=== PATIENT | female | born 1960 | race Caucasian/White ===

== ENCOUNTER → 2016-12-21 | Outpatient (CLI) | payer OTHER ==
--- NOTE | 2016-12-21 10:57 | REP ---
Clinical: Pain. Technique: AP, lateral, bilateral oblique, and sunrise views of the left knee. Findings: Age related tricompartmental degenerative changes are appreciated including subtle spurring along the femoral condyles, proximal tibia, tibial spine and patella. Fraying along the anterior margin of the patella with underlying sclerosis is also noted on lateral and sunrise views suggesting possible tendinopathy. No acute fracture dislocation. No definite effusion. Impression: Age-related arthritic degenerative changes as described above. Signed by Bello Reinoso MD 12/21/2016 10:48 A
== END ==
LOC: M RAD 10:13
PROVIDERS: ATTEND Family Medicine
DX: M17.12 Unilateral primary osteoarthritis, left knee (principal); M25.562 Pain in left knee

== ENCOUNTER 2017-01-08 16:28 | Emergency (ER) | payer OTHER ==
[~2017-01-08] VITALS: Ht 162.6 cm; Wt 74.8 kg
[2017-01-08 16:30] VITALS: BP 142/65
[2017-01-08] MEDS ORDERED: LISI10TA4 PO (16:52)
[2017-01-08] MEDS ORDERED: HYDR12.55 PO (16:52)
[2017-01-08] MEDS ORDERED: ESTR1TAB3 PO (16:55)
[2017-01-08] MEDS ORDERED: OMEP20CA3 PO (16:55)
[2017-01-08] MEDS ORDERED: VITA500046 PO (17:01)
[2017-01-08] MEDS ORDERED: BUPR75TA5 PO (17:01)
[2017-01-08] MEDS ORDERED: AMIT10TA PO (17:03)
[2017-01-08] MEDS ORDERED: NORCO, ANEXSIA 5/325MG TABLET (HYDROcodone/ACETAMINOPHEN) PO ONE ×2 (17:45→18:45)
[2017-01-08] MEDS ORDERED: NORCOTAB PO (18:29)
--- NOTE | 2017-01-09 08:19 | REP ---
LEFT KNEE SERIES: Five views of the left knee performed. There is no acute fracture or dislocation. There is mild spurring of the lateral patellar facet as well as at the margins of the femoral condyles and tibial plateaus. There is mild spurring of the tibial spines. There is slight diffuse joint space narrowing. There is a moderate joint effusion. IMPRESSION: Mild diffuse degenerative changes. No fracture or dislocation. Moderate joint effusion. Signed by Davidson Hinojosa MD 01/09/2017 04:12 P
[2017-01-09] MEDS ORDERED: NORCOTAB PO ×2 (11:03→12:09)
== END 2017-01-08 18:57 | disposition home or self-care (01) ==
LOC: M ED 18:36
DX: M25.462 Effusion, left knee (principal); I10 Essential (primary) hypertension; K21.9 Gastro-esophageal reflux disease without esophagitis; Z79.899 Other long term (current) drug therapy; Z88.6 Allergy status to analgesic agent; Z88.8 Allergy status to other drugs, medicaments and biological substances

== ENCOUNTER 2017-02-01 17:27 | Emergency (ER) | payer OTHER ==
[~2017-02-01] VITALS: Ht 162.6 cm; Wt 72.6 kg
[~2017-02-01 17:27] MED LIST: AMIT10TA PO; BUPR75TA5 PO; ESTR1TAB3 PO; HYDR12.55 PO; LISI10TA4 PO; NORCOTAB PO; OMEP20CA3 PO; VITA500046 PO
[2017-02-01 18:08] VITALS: BP 146/68
== END 2017-02-01 19:42 | disposition left against medical advice (07) ==
LOC: M ED 18:47
DX: Z53.29 Procedure and treatment not carried out because of patient's decision for other reasons (principal)

== ENCOUNTER 2017-02-02 16:47 | Emergency (ER) | payer OTHER ==
[~2017-02-02] VITALS: Ht 162.6 cm; Wt 72.6 kg
[2017-02-02 18:52] VITALS: BP 138/83
== END 2017-02-02 18:59 | disposition home or self-care (01) ==
LOC: M ED 18:51
DX: H53.9 Unspecified visual disturbance (principal); I10 Essential (primary) hypertension; J45.909 Unspecified asthma, uncomplicated; Z88.6 Allergy status to analgesic agent; Z88.8 Allergy status to other drugs, medicaments and biological substances; Z91.09 Other allergy status, other than to drugs and biological substances; Z79.899 Other long term (current) drug therapy

== ENCOUNTER → 2017-02-03 | Outpatient (RCR) | payer OTHER | LOC: M PT 01-20 10:29 | PROVIDERS: ATTEND Orthopaedic Surgery | DX: Z51.89 Encounter for other specified aftercare (principal); M17.12 Unilateral primary osteoarthritis, left knee ==

== ENCOUNTER 2017-02-14 10:09 | Outpatient (RCR) | payer OTHER | END 2017-03-05 | LOC: M PT 10:09 | PROVIDERS: ATTEND Orthopaedic Surgery | DX: Z51.89 Encounter for other specified aftercare (principal); M17.12 Unilateral primary osteoarthritis, left knee ==

== ENCOUNTER → 2017-03-16 | Outpatient (CLI) | payer OTHER ==
[2017-03-16 14:17] LABS: ANION GAP 6 MEQ/L (8-16); BLOOD UREA NITROGEN 15 MG/DL (7-18); CALCIUM LEVEL 8.6 MG/DL (8.5-10.1); CARBON DIOXIDE LEVEL 31 MEQ/L (21-32); CHLORIDE LEVEL 103 MEQ/L (98-107); CREATININE FOR GFR 0.82 MG/DL (0.55-1.02); GLOMERULAR FILTRATION RATE > 60.0 (>51); GLUCOSE, FASTING 134 MG/DL (70-105); POTASSIUM SERUM 3.7 MEQ/L (3.5-5.1); SODIUM LEVEL 140 MEQ/L (136-145)
--- NOTE | 2017-03-16 20:04 | ECGEPIP ---
Stationary ECG Study [facility] Test Date: 2017-03-16 Pat Name: PAULINA POWERS Department: Room: - Gender: F [employer]ist: : [id number] Requested By: Kirby Cordova Order Number: [id number] Reading MD: Mando Ling Measurements Intervals Hughes Rate: 77 P: 61 SD: 183 QRS: 25 QRSD: 87 T: 58 QT: 366 QTc: 416 Interpretive Statements SINUS RHYTHM SINCE 08/17/15 HR IS SLOWER AND RIGHT BUNDLE BRANCH BLOCK IS NO LONGER PRESENT Electronically Signed On 03-16-2017 20:04:05 EDT by Mando Ling
== END ==
LOC: M LAB 11:47
PROVIDERS: ATTEND Orthopaedic Surgery
DX: Z79.899 Other long term (current) drug therapy (principal); I10 Essential (primary) hypertension

== ENCOUNTER 2017-04-04 09:50 | Outpatient (RCR) | payer OTHER | END 2017-04-05 | LOC: M PT 09:50 | PROVIDERS: ATTEND Orthopaedic Surgery | DX: Z51.89 Encounter for other specified aftercare (principal); M23.302 Other meniscus derangements, unspecified lateral meniscus, unspecified knee ==

== ENCOUNTER → 2017-04-20 | Outpatient (CLI) | payer OTHER ==
[2017-04-20 11:06] LABS: ALBUMIN 3.5 GM/DL (3.2-5.2); ALKALINE PHOSPHATASE 95 U/L (45-117); ALT/SGPT 22 U/L (12-78); ANION GAP 5 MEQ/L (8-16); AST/SGOT 10 U/L (15-37); BILIRUBIN,TOTAL 0.3 MG/DL (0.2-1.0); BLOOD UREA NITROGEN 8 MG/DL (7-18); CALCIUM LEVEL 8.7 MG/DL (8.5-10.1); CARBON DIOXIDE LEVEL 31 MEQ/L (21-32); CHLORIDE LEVEL 100 MEQ/L (98-107); CREATININE FOR GFR 0.77 MG/DL (0.55-1.02); GLOMERULAR FILTRATION RATE > 60.0 (>51); GLUCOSE, FASTING 74 MG/DL (70-105); POTASSIUM SERUM 3.7 MEQ/L (3.5-5.1); SODIUM LEVEL 136 MEQ/L (136-145); TOTAL PROTEIN 7.4 GM/DL (6.4-8.2)
== END ==
LOC: M LAB 10:17
PROVIDERS: ATTEND Neuromusculoskeletal Medicine & OMM
DX: M79.7 Fibromyalgia (principal)

== ENCOUNTER 2017-05-03 08:54 | Outpatient (RCR) | payer OTHER | END 2017-05-05 | disposition home or self-care (01) | LOC: M PT 08:54 | PROVIDERS: ATTEND Orthopaedic Surgery | DX: Z51.89 Encounter for other specified aftercare (principal); Z47.89 Encounter for other orthopedic aftercare ==

== ENCOUNTER → 2017-07-27 | Outpatient (CLI) | payer OTHER ==
[~2017-07-27] MED LIST changes: +ROBA500T PO
--- NOTE | 2017-07-27 14:17 | REPMRS ---
Patient History The patient states she had a clinical breast exam in 07/2017. Patient is postmenopausal and has history of basal cell skin cancer at age 51. Family history of pancreatic cancer in father at age 62 and endometrial cancer in mother at age 50 or over. Taking estrogen for 12 years. Digital Woman Screen Mammo: July 27, 2017 - Exam #: [id number] Bilateral CC and MLO view(s) were taken. Technologist: Naina Vizcarra, Technologist Prior study comparison: July 26, 2016, digital woman screen mammo performed at [facility] [email or web address] [facility]. May 04, 2015, digital woman screen mammo performed at [facility]. FINDINGS: The breast tissue is heterogeneously dense. This may lower the sensitivity of mammography. There has been no change in the appearance of the mammogram from the prior studies. There is a moderate amount of residual fibroglandular tissue which is fairly symmetric. There is no interval development of dominant mass, areas of architectural distortion, or clustered microcalcification typical of malignancy. ASSESSMENT: BI-RADS/ACR category 1 mammogram. Negative. Recommendation Routine screening mammogram in 1 year (for women over age 40). This mammogram was interpreted with the aid of an FDA-approved computer-aided dectection system. Electronically Signed By: Davidson Hinojosa MD 07/27/17 [id number]
== END ==
LOC: M WHC 08:57
PROVIDERS: ATTEND Nurse Practitioner Women's Health
DX: Z12.31 Encounter for screening mammogram for malignant neoplasm of breast (principal); Z85.828 Personal history of other malignant neoplasm of skin; Z85.42 Personal history of malignant neoplasm of other parts of uterus; Z80.0 Family history of malignant neoplasm of digestive organs

== ENCOUNTER 2017-08-25 17:35 | Emergency (ER) | payer OTHER ==
[~2017-08-25] VITALS: Ht 162.6 cm; Wt 72.7 kg
[2017-08-25 17:35] VITALS: BP 153/88
[~2017-08-25 17:35] MED LIST changes: -ROBA500T PO
[2017-08-25] MEDS ORDERED: NORCOTAB PO (19:33)
[2017-08-25] MEDS ORDERED: ROBA500T PO (19:33)
[2017-08-25] MEDS ORDERED: NORCO 5/325MG TABLET (BULK FOR ED) PO ONE (19:45)
[2017-08-25] MEDS ORDERED: METHOCARBAMOL 500 MG TAB PO ONE (19:45)
== END 2017-08-25 19:41 | disposition home or self-care (01) ==
LOC: M ED 17:35
DX: S29.011A Strain of muscle and tendon of front wall of thorax, initial encounter (principal); S29.012A Strain of muscle and tendon of back wall of thorax, initial encounter; S16.1XXA Strain of muscle, fascia and tendon at neck level, initial encounter; X58.XXXA Exposure to other specified factors, initial encounter; Y92.89 Other specified places as the place of occurrence of the external cause; Y93.89 Activity, other specified; Y99.8 Other external cause status; M54.12 Radiculopathy, cervical region; I10 Essential (primary) hypertension; J45.909 Unspecified asthma, uncomplicated; K21.9 Gastro-esophageal reflux disease without esophagitis; Z79.899 Other long term (current) drug therapy; Z79.890 Hormone replacement therapy; Z88.8 Allergy status to other drugs, medicaments and biological substances; Z91.02 Food additives allergy status

== ENCOUNTER → 2017-11-12 | Outpatient (REF) | payer OTHER ==
[2017-11-12 22:09] LABS: APPEARANCE, URINE CLEAR (CLEAR); BACTERIA, URINE AUTO NEGATIVE (NEGATIVE); BILIRUBIN, URINE AUTO NEGATIVE (NEGATIVE); BLOOD, URINE BLOOD NEGATIVE (NEGATIVE); COLOR, URINE COLORLESS (YELLOW); GLUCOSE, URINE (UA) AUTO NEGATIVE (NEGATIVE); KETONE, URINE AUTO NEGATIVE (NEGATIVE); LEUKOCYTE ESTERASE, URINE AUTO NEGATIVE (NEGATIVE); NITRITE, URINE AUTO NEGATIVE (NEGATIVE); PROTEIN, URINE AUTO NEGATIVE (NEGATIVE); RBC, URINE AUTO 0 /HPF (0-3); SQUAMOUS EPITHELIAL CELL UR AU 0 /HPF (0-6); UROBILINOGEN, URINE AUTO 0.2 mg/dL (0.0-2.0); WBC, URINE AUTO 0 /HPF (0-3)
== END ==
LOC: M LAB REF 09:04
DX: N39.0 Urinary tract infection, site not specified (principal)

== ENCOUNTER → 2017-11-20 | Outpatient (CLI) | payer OTHER | LOC: M PAIN 08:45 | DX: G89.29 Other chronic pain (principal); M54.2 Cervicalgia; M47.22 Other spondylosis with radiculopathy, cervical region; M79.1 Myalgia; I10 Essential (primary) hypertension; E78.5 Hyperlipidemia, unspecified; J45.909 Unspecified asthma, uncomplicated; K21.9 Gastro-esophageal reflux disease without esophagitis; M19.90 Unspecified osteoarthritis, unspecified site; E55.9 Vitamin D deficiency, unspecified; G47.30 Sleep apnea, unspecified; Z79.899 Other long term (current) drug therapy; Z88.6 Allergy status to analgesic agent; Z88.8 Allergy status to other drugs, medicaments and biological substances; Z91.010 Allergy to peanuts; Z91.018 Allergy to other foods; Z91.040 Latex allergy status; Z96.651 Presence of right artificial knee joint | CPT/HCPCS: G0463 ==

== ENCOUNTER 2017-11-22 10:16 | Outpatient (RCR) | payer OTHER | END 2017-12-06 | LOC: M PT 10:16 | DX: Z51.89 Encounter for other specified aftercare (principal); M79.1 Myalgia; M54.2 Cervicalgia; M47.22 Other spondylosis with radiculopathy, cervical region | CPT/HCPCS: 97010 ==

== ENCOUNTER 2017-11-22 11:51 | Emergency (ER) | payer OTHER ==
[2017-11-22 12:53] LABS: KETONE, URINE AUTO RFX NEGATIVE (NEGATIVE); LEUKOCYTE ESTERASE UR AUTO RFX NEGATIVE (NEGATIVE); MUCUS, URINE RFX SMALL (NEGATIVE); NITRITE, URINE AUTO RFX NEGATIVE (NEGATIVE); RBC, URINE AUTO RFX 1 /HPF (0-3); SPECIFIC GRAVITY UR AUTO RFX 1.006 (1.002-1.035); SQUAM EPITHELIAL CELL UR AURFX 0 /HPF (0-6); WBC, URINE AUTO RFX 0 /HPF (0-3)
[2017-11-22] MEDS: NS 1,000 ML IV (13:17)
[2017-11-22 13:23] LABS: BASO % 0.2 % (0.0-1.0); EOS # 0.1 10^3/uL (0.0-0.50); HEMATOCRIT 36.9 % (36.0-47.0); HEMOGLOBIN 12.1 g/dl (12.0-16.0); IMMATURE GRANULOCYTE % 0.2 % (0-0); LYMPH % 32.7 % (24.0-44.0); MEAN CORPUSCULAR HEMOGLOBIN 28.3 pg (27.0-33.0); MEAN CORPUSCULAR HGB CONC 32.8 g/dl (32.0-36.5); MEAN CORPUSCULAR VOLUME 86.4 fl (80.0-96.0); MONO # 0.5 10^3/uL (0.0-0.8); MONO % 8.2 % (0.0-5.0); NEUTROPHILS # 3.6 10^3/uL (1.8-7.7); NEUTROPHILS % 57.7 % (36.0-66.0); PLATELET COUNT, AUTOMATED 240 10^3/uL (150-450); RED BLOOD COUNT 4.27 10^6/uL (4.00-5.40); RED CELL DISTRIBUTION WIDTH 13.7 % (11.5-14.5); WHITE BLOOD COUNT 6.2 10^3/uL (4.0-10.0)
[2017-11-22 13:57] LABS: ALBUMIN 3.9 GM/DL (3.2-5.2); ALBUMIN/GLOBULIN RATIO 0.91 (1.00-1.93); ALKALINE PHOSPHATASE 85 U/L (45-117); ALT/SGPT 25 U/L (12-78); ANION GAP 7 MEQ/L (8-16); AST/SGOT 17 U/L (7-37); BILIRUBIN,TOTAL 0.4 MG/DL (0.2-1.0); BLOOD UREA NITROGEN 11 MG/DL (7-18); CALCIUM LEVEL 9.2 MG/DL (8.5-10.1); CARBON DIOXIDE LEVEL 30 MEQ/L (21-32); CHLORIDE LEVEL 102 MEQ/L (98-107); CREATININE FOR GFR 0.78 MG/DL (0.55-1.02); GLOMERULAR FILTRATION RATE > 60.0 (>51); GLUCOSE, FASTING 97 MG/DL (70-105); LIPASE 378 U/L (73-393); POTASSIUM SERUM 3.8 MEQ/L (3.5-5.1); SODIUM LEVEL 139 MEQ/L (136-145); TOTAL PROTEIN 8.2 GM/DL (6.4-8.2)
[2017-11-22] MEDS ORDERED: ISOVUE-370 76% 100ML VIAL (Q9967) As Ordered (14:01)
== END 2017-11-22 16:26 | disposition home or self-care (01) ==
LOC: M ED 11:51
DX: K59.00 Constipation, unspecified (principal); R10.32 Left lower quadrant pain; J45.909 Unspecified asthma, uncomplicated; I10 Essential (primary) hypertension; K21.9 Gastro-esophageal reflux disease without esophagitis; Z79.890 Hormone replacement therapy; Z79.899 Other long term (current) drug therapy; Z88.8 Allergy status to other drugs, medicaments and biological substances; Z91.02 Food additives allergy status; Z98.890 Other specified postprocedural states
CPT/HCPCS: Q9967

== ENCOUNTER → 2017-12-05 | Outpatient (CLI) | payer OTHER ==
[~2017-12-05] MED LIST changes: -AMIT10TA PO; +BUPIVACAINE HCL 0.25% 10 ML VIAL As Ordered; +BUPIVACAINE HCL 0.25% 30 ML VIAL As Ordered; -BUPR75TA5 PO; -ESTR1TAB3 PO; -HYDR12.55 PO; -LISI10TA4 PO; -NORCOTAB PO; -OMEP20CA3 PO; +TRIAMCINOLONE ACETONIDE SUSP 40 MG/ML VIAL (J3301) As Ordered; -VITA500046 PO; +diazePAM 5 MG TAB As Ordered; +oxyCODONE 5MG TAB As Ordered
== END ==
LOC: M PAIN 15:15
DX: G89.29 Other chronic pain (principal); M79.1 Myalgia; I10 Essential (primary) hypertension; E78.5 Hyperlipidemia, unspecified; K21.9 Gastro-esophageal reflux disease without esophagitis; Z79.899 Other long term (current) drug therapy; Z88.8 Allergy status to other drugs, medicaments and biological substances; Z91.018 Allergy to other foods; Z91.040 Latex allergy status
CPT/HCPCS: J3301

== ENCOUNTER 2017-12-11 10:53 | Outpatient (RCR) | payer OTHER | END 2018-01-03 | LOC: M PT 12-14 10:45 | DX: Z51.89 Encounter for other specified aftercare (principal); M79.1 Myalgia; M54.2 Cervicalgia; M47.22 Other spondylosis with radiculopathy, cervical region | CPT/HCPCS: 97010 ==

== ENCOUNTER → 2017-12-26 | Outpatient (CLI) | payer OTHER | LOC: M PAIN 10:30 | DX: M79.1 Myalgia (principal); M54.2 Cervicalgia; I10 Essential (primary) hypertension; E78.5 Hyperlipidemia, unspecified; Z79.899 Other long term (current) drug therapy; Z88.8 Allergy status to other drugs, medicaments and biological substances; Z91.018 Allergy to other foods; Z91.010 Allergy to peanuts; Z91.040 Latex allergy status | CPT/HCPCS: G0463 ==

== ENCOUNTER → 2018-03-01 | Outpatient (CLI) | payer OTHER | LOC: M PAIN 09:00 | DX: G89.29 Other chronic pain (principal); M79.1 Myalgia; M54.2 Cervicalgia; M47.22 Other spondylosis with radiculopathy, cervical region; I10 Essential (primary) hypertension; E78.5 Hyperlipidemia, unspecified; J45.909 Unspecified asthma, uncomplicated; K21.9 Gastro-esophageal reflux disease without esophagitis; E55.9 Vitamin D deficiency, unspecified; M19.90 Unspecified osteoarthritis, unspecified site; G47.30 Sleep apnea, unspecified; Z85.828 Personal history of other malignant neoplasm of skin; Z96.651 Presence of right artificial knee joint; Z79.899 Other long term (current) drug therapy; Z88.6 Allergy status to analgesic agent; Z91.018 Allergy to other foods; Z91.040 Latex allergy status; Z88.8 Allergy status to other drugs, medicaments and biological substances | CPT/HCPCS: G0463 ==

== ENCOUNTER → 2018-03-05 | Outpatient (CLI) | payer OTHER ==
[2018-03-05 18:48] LABS: BASO % 0.3 % (0.0-1.0); EOS # 0.1 10^3/uL (0.0-0.50); EOS % 0.7 % (0.0-3.0); HEMATOCRIT 35.2 % (36.0-47.0); HEMOGLOBIN 11.8 g/dl (12.0-15.5); IMMATURE GRANULOCYTE % 0.2 % (0-3.0); LYMPH # 2.1 10^3/uL (1.5-4.5); LYMPH % 23.6 % (24.0-44.0); MEAN CORPUSCULAR HEMOGLOBIN 28.9 pg (27.0-33.0); MEAN CORPUSCULAR HGB CONC 33.5 g/dl (32.0-36.5); MEAN CORPUSCULAR VOLUME 86.3 fl (80.0-96.0); MONO # 0.8 10^3/uL (0.0-0.8); MONO % 8.6 % (0.0-5.0); NEUTROPHILS # 5.9 10^3/uL (1.8-7.7); NEUTROPHILS % 66.6 % (36.0-66.0); PLATELET COUNT, AUTOMATED 245 10^3/uL (150-450); RED BLOOD COUNT 4.08 10^6/uL (4.00-5.40); RED CELL DISTRIBUTION WIDTH 13.4 % (11.5-14.5); WHITE BLOOD COUNT 8.9 10^3/uL (4.0-10.0)
[2018-03-05 19:06] LABS: ERYTHROCYTE SEDIMENTATION RATE 71 mm/hr (0-30)
== END ==
LOC: M LAB 17:43
DX: M25.561 Pain in right knee (principal); Z98.890 Other specified postprocedural states; M17.11 Unilateral primary osteoarthritis, right knee
CPT/HCPCS: 73564

== ENCOUNTER → 2018-07-16 | Outpatient (CLI) | payer OTHER ==
[2018-07-16 20:10] LABS: BASO % 0.5 % (0.0-1.0); EOS # 0.1 10^3/uL (0.0-0.50); EOS % 1.3 % (0.0-3.0); HEMATOCRIT 34.8 % (36.0-47.0); HEMOGLOBIN 11.7 g/dl (12.0-15.5); IMMATURE GRANULOCYTE % 0.4 % (0-3.0); LYMPH # 2.8 10^3/uL (1.5-4.5); LYMPH % 33.5 % (24.0-44.0); MEAN CORPUSCULAR HEMOGLOBIN 29.5 pg (27.0-33.0); MEAN CORPUSCULAR HGB CONC 33.6 g/dl (32.0-36.5); MEAN CORPUSCULAR VOLUME 87.7 fl (80.0-96.0); MONO # 0.7 10^3/uL (0.0-0.8); NEUTROPHILS # 4.6 10^3/uL (1.8-7.7); NEUTROPHILS % 56.3 % (36.0-66.0); PLATELET COUNT, AUTOMATED 258 10^3/uL (150-450); RED BLOOD COUNT 3.97 10^6/uL (4.00-5.40); RED CELL DISTRIBUTION WIDTH 13.5 % (11.5-14.5); WHITE BLOOD COUNT 8.2 10^3/uL (4.0-10.0)
[2018-07-16 20:43] LABS: ERYTHROCYTE SEDIMENTATION RATE 59 mm/hr (0-30)
[2018-07-16 21:25] LABS: ALBUMIN 3.5 GM/DL (3.2-5.2); ALKALINE PHOSPHATASE 85 U/L (45-117); ALT/SGPT 28 U/L (12-78); ANION GAP 6 MEQ/L (8-16); AST/SGOT 20 U/L (7-37); BILIRUBIN,TOTAL 0.4 MG/DL (0.2-1.0); BLOOD UREA NITROGEN 13 MG/DL (7-18); C REACTIVE PROTEIN QUANTITATIV 0.76 MG/DL (0.00-0.30); CALCIUM LEVEL 8.6 MG/DL (8.5-10.1); CARBON DIOXIDE LEVEL 32 MEQ/L (21-32); CHLORIDE LEVEL 103 MEQ/L (98-107); CREATININE FOR GFR 0.78 MG/DL (0.55-1.30); GLOMERULAR FILTRATION RATE > 60.0 (>51); GLUCOSE, FASTING 106 MG/DL (70-100); POTASSIUM SERUM 3.6 MEQ/L (3.5-5.1); SODIUM LEVEL 141 MEQ/L (136-145); TOTAL PROTEIN 7.7 GM/DL (6.4-8.2)
[2018-07-16 21:38] LABS: ALBUMIN/GLOBULIN RATIO 0.83 (1.00-1.93)
== END ==
LOC: M LAB 19:44
DX: R10.9 Unspecified abdominal pain (principal); R35.0 Frequency of micturition
CPT/HCPCS: 80053

== ENCOUNTER → 2018-07-19 | Outpatient (CLI) | payer OTHER ==
[~2018-07-19] MED LIST changes: -BUPIVACAINE HCL 0.25% 10 ML VIAL As Ordered; -BUPIVACAINE HCL 0.25% 30 ML VIAL As Ordered; +GASTROGRAFIN SOLUTION 30ML (Q9963) As Ordered; +ISOVUE-370 76% 100ML VIAL (Q9967) As Ordered; -TRIAMCINOLONE ACETONIDE SUSP 40 MG/ML VIAL (J3301) As Ordered; -diazePAM 5 MG TAB As Ordered; -oxyCODONE 5MG TAB As Ordered
== END ==
LOC: M RAD 12:57
DX: R10.9 Unspecified abdominal pain (principal)
CPT/HCPCS: Q9963

== ENCOUNTER → 2018-10-08 | Outpatient (REF) | payer OTHER | LOC: M SFHCPLAZ 19:38 | DX: C44.509 Unspecified malignant neoplasm of skin of other part of trunk (principal) | CPT/HCPCS: 88305 ==

== ENCOUNTER → 2018-10-15 | Outpatient (CLI) | payer OTHER | LOC: M WHC 09:02 | DX: Z12.31 Encounter for screening mammogram for malignant neoplasm of breast (principal); Z80.49 Family history of malignant neoplasm of other genital organs; Z80.0 Family history of malignant neoplasm of digestive organs; N60.31 Fibrosclerosis of right breast; N60.32 Fibrosclerosis of left breast | CPT/HCPCS: 77067 ==

== ENCOUNTER → 2018-11-12 | Outpatient (CLI) | payer OTHER ==
[~2018-11-12] MED LIST changes: +AMIT10TA PO; +BUPR75TA5 PO; +CIPR-249 PO; +CITRSOL8 PO; +ESTR0.5T3 PO; +ESTR1TAB3 PO; +FLAG500T PO; -GASTROGRAFIN SOLUTION 30ML (Q9963) As Ordered; +HYDR12.55 PO; -ISOVUE-370 76% 100ML VIAL (Q9967) As Ordered; +LISI10TA4 PO; +NORCOTAB PO; +OMEP20CA3 PO; +ROBA500T PO; +VITA500046 PO
[2018-11-12 13:45] LABS: C REACTIVE PROTEIN QUANTITATIV 0.37 MG/DL (0.00-0.30)
[2018-11-16 00:06] LABS: ANCA-ATYPICAL <1:20 titer (Neg:<1:20); ANTI-SACCHAROMYCES CEREV. IgA <20.0 Units (0.0-24.9); ANTI-SACCHAROMYCES CEREV. IgG 34.8 Units (0.0-24.9); CYTOPLASMIC NEUTROP AB ANCA-C <1:20 titer (Neg:<1:20); ENDOMYSIAL ABY IgA Negative (Negative); PERINUCLEAR AB ANCA-P <1:20 titer (Neg:<1:20); TISSUE TRANSGLUTAMINASE IgA <2 U/mL (0-3)
== END ==
LOC: M LAB 12:23
PROVIDERS: ATTEND Internal Medicine Gastroenterology
DX: K52.9 Noninfective gastroenteritis and colitis, unspecified (principal)

== ENCOUNTER → 2018-11-27 | Outpatient (CLI) | payer OTHER ==
--- NOTE | 2018-11-28 05:57 | REP ---
Clinical: Right-sided abdominal pain. Technique: Upright view of the chest with supine and upright views of the abdomen and pelvis. Findings: Frontal upright view of the chest demonstrates no acute cardiopulmonary process or free air below the diaphragm to suspect pneumoperitoneum. Supine and upright views of the abdomen and pelvis demonstrate nonspecific bowel gas pattern without obstruction or perforation. The patient appears to be status post cholecystectomy. No organomegaly. No abnormal calcifications. Skeletal structures normal for age. Impression: Nonspecific bowel gas pattern. Electronically Signed by Bello Reinoso MD 11/28/2018 05:49 A
== END ==
LOC: M RAD 15:14 → M LAB 15:14
PROVIDERS: ATTEND Family Medicine
DX: R10.9 Unspecified abdominal pain (principal)

== ENCOUNTER → 2019-05-06 | Outpatient (REF) | payer OTHER ==
[~2019-05-06] MED LIST changes: +HYDR-3715 PO; -NORCOTAB PO; -OMEP20CA3 PO; +OMEP20CA4 PO
== END ==
LOC: M LAB REF 11:06
PROVIDERS: ATTEND Internal Medicine Gastroenterology
DX: R10.84 Generalized abdominal pain (principal); R11.0 Nausea; R14.3 Flatulence; K21.9 Gastro-esophageal reflux disease without esophagitis

== ENCOUNTER → 2019-05-13 | Outpatient (CLI) | payer OTHER ==
[2019-05-13 15:20] LABS: BASO # 0.1 10^3/uL (0.0-0.2); BASO % 0.7 % (0.0-1.0); EOS # 0.5 10^3/uL (0.0-0.50); EOS % 7.6 % (0.0-3.0); HEMATOCRIT 35.5 % (36.0-47.0); HEMOGLOBIN 11.8 g/dl (12.0-15.5); LYMPH # 2.1 10^3/uL (1.5-4.5); LYMPH % 31.3 % (24.0-44.0); MEAN CORPUSCULAR HEMOGLOBIN 29.6 pg (27.0-33.0); MEAN CORPUSCULAR HGB CONC 33.2 g/dl (32.0-36.5); MONO # 0.6 10^3/uL (0.0-0.8); MONO % 8.8 % (0.0-5.0); NEUTROPHILS # 3.5 10^3/uL (1.8-7.7); NEUTROPHILS % 51.3 % (36.0-66.0); PLATELET COUNT, AUTOMATED 236 10^3/uL (150-450); RED BLOOD COUNT 3.99 10^6/uL (4.00-5.40); WHITE BLOOD COUNT 6.8 10^3/uL (4.0-10.0)
[2019-05-13 15:38] LABS: HEMOGLOBIN A1c 6.2 %
[2019-05-13 15:53] LABS: ALBUMIN 3.7 GM/DL (3.2-5.2); ALT/SGPT 43 U/L (12-78); BILIRUBIN,TOTAL 0.7 MG/DL (0.2-1.0); BLOOD UREA NITROGEN 10 MG/DL (7-18); CARBON DIOXIDE LEVEL 29 MEQ/L (21-32); CHLORIDE LEVEL 101 MEQ/L (98-107); CHOLESTEROL LEVEL 227 MG/DL (<200); CHOLESTEROL RISK RATIO 3.913 (<5); CREATININE FOR GFR 0.88 MG/DL (0.55-1.30); GLOMERULAR FILTRATION RATE > 60.0 (>45); GLUCOSE, FASTING 77 MG/DL (70-100); HDL CHOLESTEROL 58 MG/DL (>40); LDL CHOLESTEROL 148 MG/DL (<100); NON-HDL-C 169 MG/DL; POTASSIUM SERUM 3.9 MEQ/L (3.5-5.1); SODIUM LEVEL 137 MEQ/L (136-145); TOTAL PROTEIN 7.4 GM/DL (6.4-8.2); TRIGLYCERIDES LEVEL 105 MG/DL (<150)
[2019-05-13 15:55] LABS: TOTAL 25(OH) VITAMIN D 77.9 NG/ML (30.0-100.0)
== END ==
LOC: M LAB 14:31
PROVIDERS: ATTEND Family Medicine
DX: R53.83 Other fatigue (principal); Z13.1 Encounter for screening for diabetes mellitus; Z13.220 Encounter for screening for lipoid disorders

== ENCOUNTER → 2019-05-14 | Outpatient (CLI) | payer OTHER ==
[~2019-05-14] MED LIST changes: +GLUCAGON FOR INJ 1 MG VIAL (J1610) As Ordered ONE; +ISOVUE-370 76% 100ML VIAL (Q9967) As Ordered ONE; +VoLumen 0.1% SUSPENSION 450ML BOTTLE As Ordered ONE
--- NOTE | 2019-05-14 23:38 | REP ---
Clinical: Generalized abdominal pain. Technique: Contrast enhanced CT of the abdomen using enterography technique. Low density oral contrast material and 100 ml Isovue 370 intravenous contrast material used as per protocol. Coronal and sagittal re-formations obtained. Comparison: 07/19/2018. Findings: Lung bases are essentially clear. Visualized heart and pericardium normal. Hepatic steatosis noted without focal hepatic lesion. Spleen, pancreas, bilateral adrenal glands and kidneys are normal. Evidence for prior cholecystectomy. Evaluation of the enteric system is without acute inflammatory process. No areas of stenosis/stricture or focal abnormalities are identified. No perienteric inflammatory change, hyperemia, or fluid noted. No bowel obstruction. No significant diverticulosis. Pelvis demonstrates normal bladder and evidence for prior hysterectomy. No ascites. No free air. No adenopathy. Abdominal aorta and vasculature normal. Musculoskeletal structures intact without focal osseous abnormality. Impression: Mild hepatic steatosis. Normal appearance to the enteric system. Evidence of prior hysterectomy and cholecystectomy. No acute abdominopelvic pathology appreciated. Electronically Signed by Bello Reinoso MD 05/14/2019 11:29 P
== END ==
LOC: M RAD 12:44
PROVIDERS: ATTEND Internal Medicine Gastroenterology
DX: R10.84 Generalized abdominal pain (principal); R14.3 Flatulence; K21.9 Gastro-esophageal reflux disease without esophagitis; R19.4 Change in bowel habit; R79.9 Abnormal finding of blood chemistry, unspecified; Z91.013 Allergy to seafood; K76.0 Fatty (change of) liver, not elsewhere classified; Z90.49 Acquired absence of other specified parts of digestive tract; Z90.710 Acquired absence of both cervix and uterus
CPT/HCPCS: 74177; J1610; Q9967

== ENCOUNTER → 2019-08-26 | Outpatient (REF) | payer OTHER ==
[~2019-08-26] MED LIST changes: -GLUCAGON FOR INJ 1 MG VIAL (J1610) As Ordered ONE; -ISOVUE-370 76% 100ML VIAL (Q9967) As Ordered ONE; -VoLumen 0.1% SUSPENSION 450ML BOTTLE As Ordered ONE
== END ==
LOC: M SFHCPLAZ 10:10
PROVIDERS: ATTEND Dermatology
DX: C44.722 Squamous cell carcinoma of skin of right lower limb, including hip (principal)

== ENCOUNTER → 2019-12-13 | Outpatient (CLI) | payer OTHER ==
[~2019-12-13] MED LIST changes: +OMEP1CAP73 PO; -OMEP20CA4 PO
--- NOTE | 2019-12-13 15:09 | REP ---
Left foot series: Four views. History: Pain and cyst dorsal aspect of the foot. A ganglion cyst. Findings: Four views of the left foot demonstrate overall mineralization pattern is normal. There is osteoarthritis at the first MTP joint with fragmented spurring. Accessory ossicles are seen at the navicula. Plantar and Achilles calcaneal spurring is noted. Bones, joints, and soft tissues are otherwise unremarkable. 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 No acute bony abnormality. Electronically Signed by Fritz Sandoval MD 12/13/2019 03:54 P
--- NOTE | 2019-12-13 15:10 | REP ---
Left ankle series: Four views. History: Pain, ganglion cyst. Findings: Four views of the left ankle demonstrate mild soft tissue swelling in the distal calf soft tissues diffusely. There is plantar and Achilles calcaneal spurring. Mild distal fibular spurring is seen. Ankle mortise is intact. No acute bony abnormality. Impression: Heel spurs. Soft tissue swelling. No acute bony abnormality. Electronically Signed by Fritz Sandoval MD 12/13/2019 03:54 P
--- NOTE | 2019-12-13 15:35 | REP ---
Soft-tissue ultrasound left foot. History: Lump in the dorsal aspect soft tissues of the left foot with pain x2 weeks. Findings: Soft tissue sonography in the area of question demonstrates two small cystic areas adjacent to one another measuring 0.6 by 0.2 x 0.4 cm and 0.8 x 0.3 x 0.6 cm. These are compatible with ganglion cyst or cysts associated with extensor tendon sheath. No tendon sheath effusion is seen however. Impression: Two small cysts adjacent to one another in the dorsal soft tissues of the left foot as above. Electronically Signed by Fritz Sandoval MD 12/13/2019 03:54 P
== END ==
LOC: M LRY 14:17
PROVIDERS: ATTEND Family Medicine
DX: M79.672 Pain in left foot (principal); M67.479 Ganglion, unspecified ankle and foot

== ENCOUNTER → 2020-01-07 | Outpatient (CLI) | payer OTHER | LOC: M LAB 09:18 | PROVIDERS: ATTEND Nurse Practitioner Family | DX: R10.31 Right lower quadrant pain (principal) ==

== ENCOUNTER → 2020-01-08 | Outpatient (REF) | payer OTHER | LOC: M LAB REF 12:22 | PROVIDERS: ATTEND Nurse Practitioner Family | DX: R10.31 Right lower quadrant pain (principal) ==

== ENCOUNTER → 2020-05-26 | Outpatient (CLI) | payer SELFPAY | LOC: M LABSMTC 14:22 | PROVIDERS: ATTEND Pediatrics | DX: Z20.828 Contact with and (suspected) exposure to other viral communicable diseases (principal); Z11.59 Encounter for screening for other viral diseases ==

== ENCOUNTER → 2020-06-23 | Outpatient (REF) | payer OTHER, SELFPAY | LOC: M LAB REF 19:24 | PROVIDERS: ATTEND Dermatology | DX: D04.60 Carcinoma in situ of skin of unspecified upper limb, including shoulder (principal); C44.519 Basal cell carcinoma of skin of other part of trunk ==

== ENCOUNTER → 2020-08-18 | Outpatient (CLI) | payer OTHER ==
--- NOTE | 2020-08-18 14:23 | REPMRS ---
Patient History The patient states she has not had a clinical breast exam in over a year. Family history of endometrial cancer at age 50 or over in mother, pancreatic cancer at age 62 in father. Taking estrogen for 13 years. Digital Woman Screen Mammo: August 18, 2020 - Exam #: [id number] Bilateral CC and MLO view(s) were taken. Technologist: Julia Mata, Technologist Prior study comparison: October 15, 2018, bilateral digital woman screen mammo performed at [facility]. July 27, 2017, digital woman screen mammo performed at [facility]. July 26, 2016, digital woman screen mammo performed at [facility]. FINDINGS: There are scattered fibroglandular densities. The Volpara volumetric breast density category is:B. There has been no change in the appearance of the mammogram from the prior studies. There is a mild amount of scattered fibroglandular density which is fairly symmetric. There is no interval development of dominant mass, architectural distortion, or grouped microcalcification suggestive of malignancy. 3-D tomosynthesis shows no additional findings. Assessment: BI-RADS/ACR category 1 mammogram. Negative Mammogram. Recommendation Routine screening mammogram of both breasts in 1 year (for women over age 40). This patient's Lifetime Breast Cancer Risk is estimated at 5.2 %. This mammogram was interpreted with the aid of an FDA-approved computer-aided dectection system. Electronically Signed By: Nito Sandoval MD 08/18/20 [id number]
== END ==
LOC: M WHC 07:12
PROVIDERS: ATTEND Family Medicine
DX: Z12.31 Encounter for screening mammogram for malignant neoplasm of breast (principal); Z80.49 Family history of malignant neoplasm of other genital organs; Z80.0 Family history of malignant neoplasm of digestive organs; Z79.899 Other long term (current) drug therapy

== ENCOUNTER → 2020-09-22 | Outpatient (REF) | payer OTHER | LOC: M LAB REF 13:45 | PROVIDERS: ATTEND Dermatology | DX: L90.5 Scar conditions and fibrosis of skin (principal) ==

== ENCOUNTER → 2021-01-25 | Outpatient (REF) | payer OTHER ==
[~2021-01-25] MED LIST changes: -AMIT10TA PO; +AMIT10TA7 PO; +LISI10TA22 PO; -LISI10TA4 PO
== END ==
LOC: M LAB REF 15:35
PROVIDERS: ATTEND Dermatology
DX: L57.0 Actinic keratosis (principal); D23.5 Other benign neoplasm of skin of trunk; D23.62 Other benign neoplasm of skin of left upper limb, including shoulder

== ENCOUNTER → 2021-03-23 | Outpatient (CLI) | payer OTHER ==
[2021-03-23 10:44] LABS: BLOOD UREA NITROGEN 14 MG/DL (7-18); CALCIUM LEVEL 8.8 MG/DL (8.8-10.2); CARBON DIOXIDE LEVEL 29 MEQ/L (21-32); CHLORIDE LEVEL 102 MEQ/L (98-107); CHOLESTEROL LEVEL 238 MG/DL (<200); CHOLESTEROL RISK RATIO 3.777 (<5); CREATININE FOR GFR 0.73 MG/DL (0.55-1.30); GLOMERULAR FILTRATION RATE > 60.0 (>45); GLUCOSE, FASTING 95 MG/DL (70-100); HDL CHOLESTEROL 63 MG/DL (>40); LDL CHOLESTEROL 160 MG/DL (<100); NON-HDL-C 175 MG/DL; POTASSIUM SERUM 4.4 MEQ/L (3.5-5.1); SODIUM LEVEL 138 MEQ/L (136-145); TRIGLYCERIDES LEVEL 77 MG/DL (<150)
== END ==
LOC: M LAB 08:33
PROVIDERS: ATTEND Family Medicine
DX: R79.89 Other specified abnormal findings of blood chemistry (principal)

== ENCOUNTER → 2021-07-26 | Outpatient (REF) | payer OTHER | LOC: M LAB REF 14:04 | PROVIDERS: ATTEND Physician Assistant | DX: C44.229 Squamous cell carcinoma of skin of left ear and external auricular canal (principal) ==

== ENCOUNTER → 2021-09-28 | Outpatient (CLI) | payer OTHER ==
--- NOTE | 2021-09-28 10:07 | REPMRS ---
Patient History The patient states she had a clinical breast exam in September 2021. Patient is postmenopausal and has history of other cancer at age 51. Family history of endometrial cancer at age 50 or over in mother, pancreatic cancer at age 62 in father. Taking estrogen for 14 years. Tomosynthesis is performed. Volpara breast density is b. [facility] lifetime risk of breast cancer 5.0%. Covid vaccines 01/14/21 left arm. 02/09/2021 left arm. booster 09/15/21 left arm. Patient states no breast complaints today. Patient has signed MRS History Sheet. Digital Woman Screen Mammo: September 28, 2021 - Exam #: [id number] Bilateral CC and MLO view(s) were taken. Technologist: RT Rekha Prior study comparison: August 18, 2020, bilateral digital woman screen mammo performed at [facility]. October 15, 2018, bilateral digital woman screen mammo performed at [facility]. FINDINGS: The breast tissue is heterogeneously dense. This may lower the sensitivity of mammography. There has been no change in the appearance of the mammogram from the prior studies. There is a moderate amount of residual fibroglandular tissue which is fairly symmetric. There is no interval development of dominant mass, areas of architectural distortion, or clustered microcalcification typical of malignancy. Assessment: BI-RADS/ACR category 1 mammogram. Negative Mammogram. Recommendation Routine screening mammogram in 1 year (for women over age 40). This mammogram was interpreted with the aid of an FDA-approved computer-aided dectection system. Electronically Signed By: Davidson Hinojosa MD 09/28/21 1007
== END ==
LOC: M WHC 08:49
PROVIDERS: ATTEND Nurse Practitioner Women's Health
DX: Z12.31 Encounter for screening mammogram for malignant neoplasm of breast (principal); Z78.0 Asymptomatic menopausal state; Z80.49 Family history of malignant neoplasm of other genital organs; Z85.89 Personal history of malignant neoplasm of other organs and systems

== ENCOUNTER → 2021-12-07 | Outpatient (REF) | payer OTHER | LOC: M LAB REF 14:04 | PROVIDERS: ATTEND Dermatology | DX: T81.49XA Infection following a procedure, other surgical site, initial encounter (principal) ==

== ENCOUNTER → 2022-09-06 | Outpatient (CLI) | payer OTHER ==
[2022-09-06 11:34] LABS: BLOOD UREA NITROGEN 13 MG/DL (7-18); CREATININE FOR GFR 0.85 MG/DL (0.55-1.30); GLUCOSE, FASTING 106 MG/DL (70-100)
[2022-09-06 11:35] LABS: CALCIUM LEVEL 9.3 MG/DL (8.8-10.2); CARBON DIOXIDE LEVEL 29 MEQ/L (21-32); CHLORIDE LEVEL 104 MEQ/L (98-107); CHOLESTEROL LEVEL 225 MG/DL (<200); CHOLESTEROL RISK RATIO 4.166 (<5); GLOMERULAR FILTRATION RATE > 60.0 (>45); HDL CHOLESTEROL 54 MG/DL (>40); LDL CHOLESTEROL 145 MG/DL (<100); NON-HDL-C 171 MG/DL; POTASSIUM SERUM 4.3 MEQ/L (3.5-5.1); SODIUM LEVEL 138 MEQ/L (136-145); TRIGLYCERIDES LEVEL 129 MG/DL (<150)
== END ==
LOC: M LAB 10:09
PROVIDERS: ATTEND Family Medicine
DX: E78.2 Mixed hyperlipidemia (principal)

== ENCOUNTER → 2023-01-24 | Outpatient (CLI) | payer OTHER | LOC: M RAD 09:18 | PROVIDERS: ATTEND Family Medicine | DX: M25.512 Pain in left shoulder (principal) ==

== ENCOUNTER → 2023-02-21 | Outpatient (CLI) | payer OTHER | LOC: M WHC 07:33 | PROVIDERS: ATTEND Nurse Practitioner Family | DX: Z12.31 Encounter for screening mammogram for malignant neoplasm of breast (principal) ==

== ENCOUNTER 2023-03-10 09:17 | Emergency (ER) | payer OTHER ==
[~2023-03-10] VITALS: Ht 162.6 cm; Wt 73.4 kg
[2023-03-10] MEDS ORDERED: LIDOCAINE 5% (LIDODERM) PATCH TD ONE (11:55)
[2023-03-10] MEDS ORDERED: ACETAMINOPH W/CODEINE #3 TAB UD PO ONE (11:55)
[2023-03-10] MEDS ORDERED: predniSONE 20 MG TAB PO ONE (11:55)
[2023-03-10] MEDS ORDERED: PRED20TA PO (12:00)
[2023-03-10] MEDS ORDERED: LIDO5DIS41 TOP (12:00)
[2023-03-10 12:54] VITALS: BP 134/71
== END 2023-03-10 12:56 | disposition home or self-care (01) ==
LOC: M ED 09:17
DX: S76.011A Strain of muscle, fascia and tendon of right hip, initial encounter (principal); X58.XXXA Exposure to other specified factors, initial encounter; Y92.89 Other specified places as the place of occurrence of the external cause; Y93.89 Activity, other specified; Y99.8 Other external cause status; I10 Essential (primary) hypertension; K21.9 Gastro-esophageal reflux disease without esophagitis; Z88.6 Allergy status to analgesic agent; Z88.8 Allergy status to other drugs, medicaments and biological substances; Z79.899 Other long term (current) drug therapy
CPT/HCPCS: 73502; 99283; J7512

== ENCOUNTER → 2023-12-19 | Outpatient (CLI) | payer MEDICARE, OTHER ==
[~2023-12-19] MED LIST changes: +LIDO5DIS41 TOP; +PRED20TA PO
[2023-12-19 08:34] LABS: BASO % 0.5 % (0.0-1.0); EOS # 0.1 10^3/uL (0.0-0.5); EOS % 2.3 % (0.0-3.0); HEMATOCRIT 34.8 % (36.0-47.0); HEMOGLOBIN 11.2 g/dl (12.0-15.5); LYMPH # 1.7 10^3/uL (1.5-5.0); LYMPH % 31.1 % (24.0-44.0); MEAN CORPUSCULAR HGB CONC 32.2 g/dl (32.0-36.5); MONO # 0.4 10^3/uL (0.0-0.8); MONO % 6.8 % (2.0-8.0); NEUTROPHILS # 3.3 10^3/uL (1.5-8.5); NEUTROPHILS % 59.1 % (36.0-66.0); PLATELET COUNT, AUTOMATED 247 10^3/uL (150-450); WHITE BLOOD COUNT 5.6 10^3/uL (4.0-10.0)
[2023-12-19 09:09] LABS: FREE T4 0.87 NG/DL (0.89-1.76)
[2023-12-19 09:10] LABS: ALBUMIN 3.5 G/DL (3.2-5.2); ALKALINE PHOSPHATASE 72 U/L (46-116); ALT/SGPT 20 U/L (7.0-40); AST/SGOT 15 U/L (<34); BILIRUBIN,TOTAL 0.8 MG/DL (0.3-1.2); BLOOD UREA NITROGEN 15 MG/DL (9-23); CALCIUM LEVEL 8.7 MG/DL (8.3-10.6); CARBON DIOXIDE LEVEL 30 MMOL/L (20-31); CHLORIDE LEVEL 107 MMOL/L (98-107); CHOLESTEROL LEVEL 201 MG/DL (<200); CHOLESTEROL RISK RATIO 4.47 (<5); GLOMERULAR FILTRATION RATE > 60.0 (>45); GLUCOSE, FASTING 117 MG/DL (74-106); HDL CHOLESTEROL 44.9 MG/DL (>40); LDL CHOLESTEROL 131.3 MG/DL (<100); NON-HDL-C 156.1 MG/DL; POTASSIUM SERUM 4.3 MMOL/L (3.5-5.1); SODIUM LEVEL 141 MMOL/L (136-145); THYROID STIMULATING HORMONE 3.188 uIU/ML (0.55-4.78); TOTAL PROTEIN 6.9 G/DL (5.7-8.2); TRIGLYCERIDES LEVEL 124 MG/DL (<150)
[2023-12-19 09:42] LABS: HEPATITIS C VIRUS ABY INDEX 0.03 INDEX (<0.8)
== END ==
LOC: M LAB 07:50
PROVIDERS: ATTEND Family Medicine
DX: E66.3 Overweight (principal); E78.2 Mixed hyperlipidemia; R79.89 Other specified abnormal findings of blood chemistry

== ENCOUNTER 2024-02-06 06:46 | Day surgery (SDC) | payer MEDICARE, OTHER ==
[~2024-02-06] VITALS: Ht 162.6 cm; Wt 71.9 kg
[~2024-02-06 06:46] MED LIST changes: +ALLE180T33 PO; +BLAC1CAP2 PO; +VITA100093 PO; +ZOLO50TA PO
[2024-02-06] MEDS: NS 1,000 ML IV ONE (07:12)
[2024-02-06 08:00] VITALS: TEMP 96.9
[2024-02-06] MEDS ORDERED: propofoL 500 MG/50 ML VIAL As Ordered ONE (08:07)
[2024-02-06 08:17] VITALS: BP 116/58; O2SAT 95
== END 2024-02-06 08:19 | disposition home or self-care (01) ==
LOC: M OPP 06:46
PROVIDERS: ATTEND Internal Medicine Gastroenterology
DX: Z86.010 Personal history of colon polyps (principal); D12.6 Benign neoplasm of colon, unspecified; K64.8 Other hemorrhoids; K64.4 Residual hemorrhoidal skin tags; Z79.818 Long term (current) use of other agents affecting estrogen receptors and estrogen levels; Z79.899 Other long term (current) drug therapy; Z88.6 Allergy status to analgesic agent; Z88.8 Allergy status to other drugs, medicaments and biological substances; Z91.013 Allergy to seafood; Z91.018 Allergy to other foods; Z91.040 Latex allergy status; Z91.048 Other nonmedicinal substance allergy status

== ENCOUNTER → 2024-02-07 | Outpatient (REF) | payer MEDICARE, OTHER ==
[2024-02-07 22:09] LABS: APPEARANCE, URINE CLEAR (CLEAR); BACTERIA, URINE AUTO 2+ (NEGATIVE); BILIRUBIN, URINE AUTO NEGATIVE (NEGATIVE); BLOOD, URINE BLOOD 2+ (NEGATIVE); COLOR, URINE STRAW (YELLOW); GLUCOSE, URINE (UA) AUTO NEGATIVE (NEGATIVE); KETONE, URINE AUTO NEGATIVE (NEGATIVE); LEUKOCYTE ESTERASE, URINE AUTO 2+ (NEGATIVE); MUCUS, URINE SMALL (NEGATIVE); NITRITE, URINE AUTO NEGATIVE (NEGATIVE); PROTEIN, URINE AUTO NEGATIVE (NEGATIVE); RBC, URINE AUTO 0 /HPF (0-3); SPECIFIC GRAVITY URINE AUTO 1.003 (1.002-1.035); SQUAMOUS EPITHELIAL CELL UR AU 1 /HPF (0-6); UROBILINOGEN, URINE AUTO 0.2 mg/dL (0.0-2.0); WBC, URINE AUTO 28 /HPF (0-3)
== END ==
LOC: M LAB REF 21:36
PROVIDERS: ATTEND Physician Assistant
DX: N39.0 Urinary tract infection, site not specified (principal)

== ENCOUNTER → 2024-02-14 | Outpatient (REF) | payer MEDICARE, OTHER ==
[2024-02-14 22:47] LABS: APPEARANCE, URINE CLEAR (CLEAR); BACTERIA, URINE AUTO NEGATIVE (NEGATIVE); BILIRUBIN, URINE AUTO NEGATIVE (NEGATIVE); BLOOD, URINE BLOOD NEGATIVE (NEGATIVE); COLOR, URINE YELLOW (YELLOW); GLUCOSE, URINE (UA) AUTO NEGATIVE (NEGATIVE); KETONE, URINE AUTO NEGATIVE (NEGATIVE); LEUKOCYTE ESTERASE, URINE AUTO NEGATIVE (NEGATIVE); NITRITE, URINE AUTO NEGATIVE (NEGATIVE); PROTEIN, URINE AUTO NEGATIVE (NEGATIVE); RBC, URINE AUTO 0 /HPF (0-3); SPECIFIC GRAVITY URINE AUTO 1.006 (1.002-1.035); SQUAMOUS EPITHELIAL CELL UR AU 0 /HPF (0-6); UROBILINOGEN, URINE AUTO 0.2 mg/dL (0.0-2.0); WBC, URINE AUTO 1 /HPF (0-3)
== END ==
LOC: M LAB REF 22:27
PROVIDERS: ATTEND Physician Assistant
DX: N39.0 Urinary tract infection, site not specified (principal)

== ENCOUNTER → 2024-02-16 | Outpatient (CLI) | payer OTHER, MEDICARE ==
[2024-02-16 18:13] LABS: APPEARANCE, URINE CLEAR (CLEAR); BACTERIA, URINE AUTO NEGATIVE (NEGATIVE); BILIRUBIN, URINE AUTO NEGATIVE (NEGATIVE); BLOOD, URINE BLOOD NEGATIVE (NEGATIVE); COLOR, URINE STRAW (YELLOW); GLUCOSE, URINE (UA) AUTO NEGATIVE (NEGATIVE); KETONE, URINE AUTO NEGATIVE (NEGATIVE); LEUKOCYTE ESTERASE, URINE AUTO NEGATIVE (NEGATIVE); NITRITE, URINE AUTO NEGATIVE (NEGATIVE); PROTEIN, URINE AUTO NEGATIVE (NEGATIVE); RBC, URINE AUTO 0 /HPF (0-3); SPECIFIC GRAVITY URINE AUTO 1.004 (1.002-1.035); SQUAMOUS EPITHELIAL CELL UR AU 1 /HPF (0-6); UROBILINOGEN, URINE AUTO 0.2 mg/dL (0.0-2.0); WBC, URINE AUTO 0 /HPF (0-3)
[2024-02-16 18:36] LABS: BASO % 0.4 % (0.0-1.0); EOS # 0.1 10^3/uL (0.0-0.5); EOS % 1.2 % (0.0-3.0); HEMATOCRIT 35.5 % (36.0-47.0); HEMOGLOBIN 11.3 g/dl (12.0-15.5); LYMPH # 2.4 10^3/uL (1.5-5.0); LYMPH % 31.6 % (24.0-44.0); MEAN CORPUSCULAR HEMOGLOBIN 27.2 pg (27.0-33.0); MEAN CORPUSCULAR HGB CONC 31.8 g/dl (32.0-36.5); MEAN CORPUSCULAR VOLUME 85.3 fl (80.0-96.0); MONO # 0.6 10^3/uL (0.0-0.8); MONO % 7.9 % (2.0-8.0); NEUTROPHILS # 4.4 10^3/uL (1.5-8.5); NEUTROPHILS % 58.5 % (36.0-66.0); PLATELET COUNT, AUTOMATED 295 10^3/uL (150-450); RED BLOOD COUNT 4.16 10^6/uL (4.00-5.40); WHITE BLOOD COUNT 7.4 10^3/uL (4.0-10.0)
[2024-02-16 19:02] LABS: CALCIUM LEVEL 9.3 MG/DL (8.3-10.6); CREATININE FOR GFR 1.01 MG/DL (0.55-1.30); GLOMERULAR FILTRATION RATE 58.6 (>45); POTASSIUM SERUM 4.6 MMOL/L (3.5-5.1)
== END ==
LOC: M PLALAB 16:28
PROVIDERS: ATTEND Family Medicine
DX: N39.0 Urinary tract infection, site not specified (principal); R53.83 Other fatigue

== ENCOUNTER → 2024-02-26 | Outpatient (CLI) | payer MEDICARE, OTHER ==
[2024-02-26 10:23] LABS: BASO % 0.6 % (0.0-1.0); EOS # 0.1 10^3/uL (0.0-0.5); EOS % 1.4 % (0.0-3.0); HEMATOCRIT 35.4 % (36.0-47.0); HEMOGLOBIN 11.3 g/dl (12.0-15.5); LYMPH # 1.9 10^3/uL (1.5-5.0); LYMPH % 29.7 % (24.0-44.0); MEAN CORPUSCULAR HEMOGLOBIN 27.4 pg (27.0-33.0); MEAN CORPUSCULAR HGB CONC 31.9 g/dl (32.0-36.5); MEAN CORPUSCULAR VOLUME 85.7 fl (80.0-96.0); MONO # 0.5 10^3/uL (0.0-0.8); MONO % 8.4 % (2.0-8.0); NEUTROPHILS # 3.8 10^3/uL (1.5-8.5); NEUTROPHILS % 59.6 % (36.0-66.0); PLATELET COUNT, AUTOMATED 285 10^3/uL (150-450); RED BLOOD COUNT 4.13 10^6/uL (4.00-5.40); WHITE BLOOD COUNT 6.3 10^3/uL (4.0-10.0)
[2024-02-26 10:34] LABS: PERCENT SATURATION 7.7 % (13.2-45.0)
[2024-02-26 10:35] LABS: FERRITIN 5.2 NG/ML (7.3-270.7); FOLATE 10.34 NG/ML (>5.4)
== END ==
LOC: M LAB 09:27
PROVIDERS: ATTEND Family Medicine
DX: D50.9 Iron deficiency anemia, unspecified (principal); R53.83 Other fatigue; Z79.899 Other long term (current) drug therapy

== ENCOUNTER → 2024-03-04 | Outpatient (CLI) | payer MEDICARE, OTHER | LOC: M WHC 07:48 | PROVIDERS: ATTEND Nurse Practitioner Family | DX: Z12.31 Encounter for screening mammogram for malignant neoplasm of breast (principal); Z13.820 Encounter for screening for osteoporosis; R92.333 Mammographic heterogeneous density, bilateral breasts; Z79.818 Long term (current) use of other agents affecting estrogen receptors and estrogen levels ==

== ENCOUNTER → 2024-04-18 | Outpatient (CLI) | payer MEDICARE, OTHER | LOC: M RAD 17:35 | PROVIDERS: ATTEND Physician Assistant | DX: M51.34 Other intervertebral disc degeneration, thoracic region (principal); R07.89 Other chest pain ==

== ENCOUNTER → 2024-05-27 | Outpatient (REF) | payer MEDICARE, OTHER ==
[2024-05-27 17:44] LABS: BASO # 0.1 10^3/uL (0.0-0.2); BASO % 0.7 % (0.0-1.0); EOS # 0.1 10^3/uL (0.0-0.5); EOS % 1.9 % (0.0-3.0); HEMATOCRIT 39.5 % (36.0-47.0); HEMOGLOBIN 12.6 g/dl (12.0-15.5); LYMPH # 1.9 10^3/uL (1.5-5.0); LYMPH % 28.6 % (24.0-44.0); MEAN CORPUSCULAR HGB CONC 31.9 g/dl (32.0-36.5); MONO # 0.7 10^3/uL (0.0-0.8); MONO % 10.6 % (2.0-8.0); NEUTROPHILS # 3.9 10^3/uL (1.5-8.5); NEUTROPHILS % 58.1 % (36.0-66.0); PLATELET COUNT, AUTOMATED 224 10^3/uL (150-450); RED BLOOD COUNT 4.34 10^6/uL (4.00-5.40); WHITE BLOOD COUNT 6.8 10^3/uL (4.0-10.0)
[2024-05-27 17:58] LABS: FERRITIN 11.9 NG/ML (7.3-270.7); PERCENT SATURATION 18.3 % (13.2-45.0)
== END ==
LOC: M SFHCLERA 08:32
PROVIDERS: ATTEND Family Medicine
DX: D50.9 Iron deficiency anemia, unspecified (principal)

== ENCOUNTER → 2024-09-03 | Outpatient (REF) | payer MEDICARE, MEDICAID ==
[2024-09-03 18:35] LABS: BASO % 0.5 % (0.0-1.0); EOS # 0.1 10^3/uL (0.0-0.5); EOS % 2.3 % (0.0-3.0); HEMATOCRIT 37.2 % (36.0-47.0); HEMOGLOBIN 12.1 g/dl (12.0-15.5); LYMPH # 1.9 10^3/uL (1.5-5.0); MEAN CORPUSCULAR HEMOGLOBIN 30.5 pg (27.0-33.0); MEAN CORPUSCULAR HGB CONC 32.5 g/dl (32.0-36.5); MEAN CORPUSCULAR VOLUME 93.7 fl (80.0-96.0); MONO # 0.5 10^3/uL (0.0-0.8); MONO % 8.5 % (2.0-8.0); NEUTROPHILS # 3.6 10^3/uL (1.5-8.5); NEUTROPHILS % 57.4 % (36.0-66.0); PLATELET COUNT, AUTOMATED 220 10^3/uL (150-450); RED BLOOD COUNT 3.97 10^6/uL (4.00-5.40); WHITE BLOOD COUNT 6.2 10^3/uL (4.0-10.0)
[2024-09-03 18:38] LABS: ALBUMIN 3.5 G/DL (3.2-5.2); ALKALINE PHOSPHATASE 67 U/L (35-104); ALT/SGPT 27 U/L (7.0-40); AST/SGOT 17 U/L (<34); BLOOD UREA NITROGEN 13 MG/DL (9-23); CALCIUM LEVEL 9.5 MG/DL (8.3-10.6); CARBON DIOXIDE LEVEL 32 MMOL/L (20-31); CHLORIDE LEVEL 107 MMOL/L (98-107); CREATININE FOR GFR 0.81 MG/DL (0.55-1.30); GLOMERULAR FILTRATION RATE > 60.0 (>45); GLUCOSE, FASTING 113 MG/DL (74-106); POTASSIUM SERUM 4.2 MMOL/L (3.5-5.1); SODIUM LEVEL 143 MMOL/L (136-145)
== END ==
LOC: M SFHCLERA 07:34
PROVIDERS: ATTEND Family Medicine
DX: D50.9 Iron deficiency anemia, unspecified (principal); R19.7 Diarrhea, unspecified

== ENCOUNTER 2024-11-05 11:11 | Inpatient (IN) | payer MEDICARE, MEDICAID ==
[~2024-11-05] VITALS: Ht 160 cm; Wt 69.1 kg
[2024-11-05 12:37] LABS: BASO % 0.5 % (0.0-1.0); EOS # 0.1 10^3/uL (0.0-0.5); EOS % 1.9 % (0.0-3.0); HEMATOCRIT 36.3 % (36.0-47.0); HEMOGLOBIN 12.5 g/dl (12.0-15.5); LYMPH # 1.3 10^3/uL (1.5-5.0); LYMPH % 22.1 % (24.0-44.0); MEAN CORPUSCULAR HEMOGLOBIN 31.3 pg (27.0-33.0); MEAN CORPUSCULAR HGB CONC 34.4 g/dl (32.0-36.5); MEAN CORPUSCULAR VOLUME 90.8 fl (80.0-96.0); MONO # 0.7 10^3/uL (0.0-0.8); MONO % 12.8 % (2.0-8.0); NEUTROPHILS # 3.6 10^3/uL (1.5-8.5); NEUTROPHILS % 62.4 % (36.0-66.0); PLATELET COUNT, AUTOMATED 219 10^3/uL (150-450); WHITE BLOOD COUNT 5.8 10^3/uL (4.0-10.0)
[2024-11-05 12:57] LABS: ALBUMIN 3.7 G/DL (3.2-5.2); ALKALINE PHOSPHATASE 69 U/L (35-104); ALT/SGPT 42 U/L (7.0-40); AST/SGOT 43 U/L (<34); BILIRUBIN,DIRECT 0.3 MG/DL (<0.4); BILIRUBIN,TOTAL 1.2 MG/DL (0.3-1.2); BLOOD UREA NITROGEN 13 MG/DL (9-23); CALCIUM LEVEL 9.7 MG/DL (8.3-10.6); CARBON DIOXIDE LEVEL 27 MMOL/L (20-31); CHLORIDE LEVEL 100 MMOL/L (98-107); CREATININE FOR GFR 0.72 MG/DL (0.55-1.30); GLOMERULAR FILTRATION RATE > 60.0 (>45); GLUCOSE, FASTING 104 MG/DL (74-106); POTASSIUM SERUM 3.2 MMOL/L (3.5-5.1); SODIUM LEVEL 138 MMOL/L (136-145); TOTAL PROTEIN 7.7 G/DL (5.7-8.2)
[2024-11-05] MEDS: ACETAMINOPHEN 500 MG TAB PO ONE (13:35)
[2024-11-05] MEDS: methylPREDNISolone 40MG 1ML VIAL IV ONE (14:00)
[2024-11-05] MEDS: MAG SULF 1GM/100ML (MAG RUN) 1 GM in IV 1 EA IV ONE (14:00)
[2024-11-05] MEDS ORDERED: ISOVUE-370 76% 100ML VIAL As Ordered ONE (14:08)
[2024-11-05] MEDS: IPRATROPIUM 0.5MG/ALBUTEROL 2.5MG INH SOL UD 3ML (DUONEB) NEB ONE (14:10)
[2024-11-05 14:20] LABS: CK-MB VALUE MASS < 1.0 NG/ML (<3.6)
[2024-11-05 14:21] LABS: CPK CREATINE PHOSPHOKINASE 85 U/L (34-145); MB/CK RELATIVE INDEX 1.17 (< OR =4)
[2024-11-05] MEDS: LevoFLOXacin IV 750 MG in IV 1 EA IV ONE (15:10)
[2024-11-05] MEDS ORDERED: LISI20TA33 PO (16:15)
[2024-11-05] MEDS ORDERED: ACET650T61 PO (16:25)
[2024-11-05] MEDS ORDERED: HOME MED LIST COMPLETE! XX SCH (16:30)
[2024-11-05 17:38] VITALS: BP 141/68; TEMP 97.7
[2024-11-05] MEDS: ALBUTEROL SULFATE 2.5MG/0.5ML INH NEB SOLN NEB SCH (17:59)
[2024-11-05] MEDS: POTASSIUM CHLORIDE 10MEQ SR TABLET PO ONE (18:13)
[2024-11-05 20:00] VITALS: BP 125/64; TEMP 97.5; O2SAT 91
[2024-11-05] MEDS: SYMBICORT 160/4.5MCG INHALER 6GM INH SCH (20:29)
[2024-11-05] MEDS: DOCUSATE SODIUM 100MG CAPSULE PO SCH (21:00)
[2024-11-05] MEDS: methylPREDNISolone 40MG 1ML VIAL IV SCH (21:11)
[2024-11-06] MEDS: DEXTROMETHORPHAN 60MG/10ML SUSP 90ML BTL(DELSYM) PO PRN (02:52)
[2024-11-06 04:00] VITALS: BP 155/83; TEMP 97.9; O2SAT 89
[2024-11-06 06:39] LABS: HEMATOCRIT 36.6 % (36.0-47.0); HEMOGLOBIN 12.4 g/dl (12.0-15.5); LYMPH # 0.6 10^3/uL (1.5-5.0); LYMPH % 10.7 % (24.0-44.0); MEAN CORPUSCULAR HEMOGLOBIN 30.6 pg (27.0-33.0); MEAN CORPUSCULAR HGB CONC 33.9 g/dl (32.0-36.5); MEAN CORPUSCULAR VOLUME 90.4 fl (80.0-96.0); MONO # 0.3 10^3/uL (0.0-0.8); MONO % 5.4 % (2.0-8.0); NEUTROPHILS # 4.8 10^3/uL (1.5-8.5); NEUTROPHILS % 83.5 % (36.0-66.0); PLATELET COUNT, AUTOMATED 273 10^3/uL (150-450); RED BLOOD COUNT 4.05 10^6/uL (4.00-5.40); WHITE BLOOD COUNT 5.7 10^3/uL (4.0-10.0)
[2024-11-06 06:54] LABS: BLOOD UREA NITROGEN 13 MG/DL (9-23); CALCIUM LEVEL 9.7 MG/DL (8.3-10.6); CARBON DIOXIDE LEVEL 26 MMOL/L (20-31); CHLORIDE LEVEL 98 MMOL/L (98-107); CREATININE FOR GFR 0.66 MG/DL (0.55-1.30); GLOMERULAR FILTRATION RATE > 60.0 (>45); GLUCOSE, FASTING 178 MG/DL (74-106); POTASSIUM SERUM 3.6 MMOL/L (3.5-5.1); SODIUM LEVEL 136 MMOL/L (136-145)
[2024-11-06] MEDS: ENOXAPARIN 40MG/0.4ML SYRINGE (J1650 PER 10MG) SC SCH (09:07)
[2024-11-06 12:00] VITALS: BP 144/69; TEMP 97.6; O2SAT 94
[2024-11-06] MEDS: LevoFLOXacin 750 MG TABLET PO SCH (17:04)
[2024-11-06 21:01] VITALS: BP 147/69; TEMP 97.9; O2SAT 93
[2024-11-07 04:15] VITALS: BP 138/66; TEMP 97.3; O2SAT 91
[2024-11-07 07:21] LABS: BASO % 0.1 % (0.0-1.0); HEMATOCRIT 34.4 % (36.0-47.0); HEMOGLOBIN 11.5 g/dl (12.0-15.5); LYMPH % 9.1 % (24.0-44.0); MEAN CORPUSCULAR HEMOGLOBIN 30.5 pg (27.0-33.0); MEAN CORPUSCULAR HGB CONC 33.4 g/dl (32.0-36.5); MEAN CORPUSCULAR VOLUME 91.2 fl (80.0-96.0); MONO # 0.6 10^3/uL (0.0-0.8); MONO % 5.9 % (2.0-8.0); NEUTROPHILS % 84.2 % (36.0-66.0); PLATELET COUNT, AUTOMATED 256 10^3/uL (150-450); RED BLOOD COUNT 3.77 10^6/uL (4.00-5.40); WHITE BLOOD COUNT 10.7 10^3/uL (4.0-10.0)
[2024-11-07 08:00] LABS: BLOOD UREA NITROGEN 18 MG/DL (9-23); CALCIUM LEVEL 9.9 MG/DL (8.3-10.6); CARBON DIOXIDE LEVEL 26 MMOL/L (20-31); CHLORIDE LEVEL 100 MMOL/L (98-107); CREATININE FOR GFR 0.67 MG/DL (0.55-1.30); GLOMERULAR FILTRATION RATE > 60.0 (>45); GLUCOSE, FASTING 132 MG/DL (74-106); POTASSIUM SERUM 4.4 MMOL/L (3.5-5.1); SODIUM LEVEL 139 MMOL/L (136-145)
[2024-11-07 12:00] VITALS: BP 156/76; TEMP 97.5; O2SAT 92
[2024-11-07] MEDS: SERTRALINE HCL 50 MG TAB PO SCH (14:04)
[2024-11-07] MEDS: CALCIUM CARBONATE 500 MG CHEW U/D PO PRN (15:56)
[2024-11-07] MEDS: methylPREDNISolone 40MG 1ML VIAL IV SCH (18:05)
[2024-11-07] MEDS: OMEPRAZOLE 20MG CAP PO SCH (20:50)
[2024-11-07 21:00] VITALS: BP 151/84; TEMP 97.7; O2SAT 93
[2024-11-07] MEDS ORDERED: ALBUTEROL SULFATE 2.5MG/0.5ML INH NEB SOLN NEB PRN (21:50)
[2024-11-07 22:20] LABS: VENOUS BASE EXCESS -0.6 (-2.0-2.0); VENOUS O2 SATURATION 60.5 % (60.0-80.0); VENOUS PARTIAL PRESSURE CO2 45.1 mmHg (38.0-50.0); VENOUS PARTIAL PRESSURE O2 33.5 mmHg (30.0-50.0); VENOUS PH 7.362 UNITS (7.330-7.430); VENOUS STANDARD HCO3 23.1 MMOL/L; VENOUS TOTAL CO2 26.4 MMOL/L (24.0-28.0)
[2024-11-07 22:23] LABS: BASO % 0.1 % (0.0-1.0); HEMATOCRIT 37.2 % (36.0-47.0); HEMOGLOBIN 12.3 g/dl (12.0-15.5); LYMPH # 1.2 10^3/uL (1.5-5.0); LYMPH % 10.9 % (24.0-44.0); MEAN CORPUSCULAR HEMOGLOBIN 30.4 pg (27.0-33.0); MEAN CORPUSCULAR HGB CONC 33.1 g/dl (32.0-36.5); MEAN CORPUSCULAR VOLUME 92.1 fl (80.0-96.0); MONO # 0.6 10^3/uL (0.0-0.8); MONO % 5.4 % (2.0-8.0); NEUTROPHILS # 8.7 10^3/uL (1.5-8.5); NEUTROPHILS % 82.2 % (36.0-66.0); PLATELET COUNT, AUTOMATED 292 10^3/uL (150-450); RED BLOOD COUNT 4.04 10^6/uL (4.00-5.40); WHITE BLOOD COUNT 10.6 10^3/uL (4.0-10.0)
[2024-11-07] MEDS: IPRATROPIUM 0.5MG/ALBUTEROL 2.5MG INH SOL UD 3ML (DUONEB) NEB ONE (22:27)
[2024-11-07 23:00] LABS: PROCALCITONIN <0.04 ng/ml
[2024-11-07 23:02] LABS: ALBUMIN 3.6 G/DL (3.2-5.2); ALKALINE PHOSPHATASE 64 U/L (35-104); ALT/SGPT 33 U/L (7.0-40); AST/SGOT 22 U/L (<34); BILIRUBIN,TOTAL 0.4 MG/DL (0.3-1.2); BLOOD UREA NITROGEN 19 MG/DL (9-23); CALCIUM LEVEL 10.1 MG/DL (8.3-10.6); CARBON DIOXIDE LEVEL 30 MMOL/L (20-31); CHLORIDE LEVEL 101 MMOL/L (98-107); CREATININE FOR GFR 0.71 MG/DL (0.55-1.30); GLOMERULAR FILTRATION RATE > 60.0 (>45); GLUCOSE, FASTING 154 MG/DL (74-106); MAGNESIUM LEVEL 1.7 MG/DL (1.8-2.4); SODIUM LEVEL 139 MMOL/L (136-145); TOTAL PROTEIN 7.6 G/DL (5.7-8.2)
[2024-11-08] MEDS: IPRATROPIUM 0.5MG/ALBUTEROL 2.5MG INH SOL UD 3ML (DUONEB) NEB SCH ×2 (02:37→13:51)
[2024-11-08 05:26] VITALS: BP 118/58; TEMP 97.3; O2SAT 91
[2024-11-08] MEDS: FUROSEMIDE 40MG/4ML VIAL IV ONE (08:53)
[2024-11-08] MEDS: MAGNESIUM OXIDE 400MG TAB (MAG-OX) PO SCH (08:54)
[2024-11-08 12:00] VITALS: BP 139/68; TEMP 96.8; O2SAT 93
[2024-11-09 04:00] VITALS: BP 131/54; TEMP 97.5; O2SAT 94
[2024-11-09 07:28] LABS: BASO % 0.2 % (0.0-1.0); HEMATOCRIT 34.4 % (36.0-47.0); HEMOGLOBIN 11.6 g/dl (12.0-15.5); LYMPH # 1.3 10^3/uL (1.5-5.0); LYMPH % 15.2 % (24.0-44.0); MEAN CORPUSCULAR HEMOGLOBIN 30.9 pg (27.0-33.0); MEAN CORPUSCULAR HGB CONC 33.7 g/dl (32.0-36.5); MEAN CORPUSCULAR VOLUME 91.5 fl (80.0-96.0); MONO # 0.6 10^3/uL (0.0-0.8); MONO % 6.6 % (2.0-8.0); NEUTROPHILS # 6.7 10^3/uL (1.5-8.5); NEUTROPHILS % 76.5 % (36.0-66.0); PLATELET COUNT, AUTOMATED 242 10^3/uL (150-450); RED BLOOD COUNT 3.76 10^6/uL (4.00-5.40); WHITE BLOOD COUNT 8.7 10^3/uL (4.0-10.0)
[2024-11-09 07:55] LABS: BLOOD UREA NITROGEN 18 MG/DL (9-23); CALCIUM LEVEL 9.5 MG/DL (8.3-10.6); CARBON DIOXIDE LEVEL 30 MMOL/L (20-31); CHLORIDE LEVEL 99 MMOL/L (98-107); CREATININE FOR GFR 0.76 MG/DL (0.55-1.30); GLOMERULAR FILTRATION RATE > 60.0 (>45); GLUCOSE, FASTING 124 MG/DL (74-106); SODIUM LEVEL 140 MMOL/L (136-145)
[2024-11-09 08:21] VITALS: BP 152/76
[2024-11-09] MEDS ORDERED: VENTAER INH (11:27)
[2024-11-09] MEDS ORDERED: LEVO75TAB PO (11:27)
[2024-11-09] MEDS ORDERED: PRED20TA PO (11:27)
[2024-11-09] MEDS ORDERED: SYMB16INH INH (11:27)
[2024-11-09 11:48] VITALS: O2SAT 92
[2024-11-09 12:00] VITALS: BP 128/69; TEMP 97.5; O2SAT 92
== END 2024-11-09 13:22 | disposition home or self-care (01) | DRG 202 ==
LOC: M ED 11:11 → M ED INP 15:46 → M MS5PR 17:25
PROVIDERS: ADMIT Internal Medicine Nephrology; ATTEND Internal Medicine Nephrology
DX: J45.901 Unspecified asthma with (acute) exacerbation (principal); J15.9 Unspecified bacterial pneumonia; I10 Essential (primary) hypertension; E78.5 Hyperlipidemia, unspecified; M19.90 Unspecified osteoarthritis, unspecified site; E55.9 Vitamin D deficiency, unspecified; D50.9 Iron deficiency anemia, unspecified; B97.4 Respiratory syncytial virus as the cause of diseases classified elsewhere; M79.7 Fibromyalgia; G47.30 Sleep apnea, unspecified; Z85.828 Personal history of other malignant neoplasm of skin; Z96.653 Presence of artificial knee joint, bilateral; Z90.49 Acquired absence of other specified parts of digestive tract

== ENCOUNTER 2025-02-17 09:40 | Day surgery (SDC) | payer MEDICARE, MEDICAID ==
[~2025-02-17] VITALS: Ht 162.6 cm; Wt 71.7 kg
[~2025-02-17 09:40] MED LIST changes: +ACET650T61 PO; +FEXO-63 PO; +FLON27.5 NARES; +LEVO75TAB PO; +LISI20TA33 PO; +LR 1,000 ML IV SCH; +MIDAZOLAM INJ 2MG/2ML VIAL As Ordered ONE; +SYMB16INH INH; +VENTAER INH
[2025-02-17] MEDS: CYCLOPENTOLATE 1% OPHTH SOLN 2ML BTL OD SCH (11:03)
[2025-02-17] MEDS: PHENYLEPHRINE 2.5% OPHTH SOL 2ML OD SCH (11:04)
[2025-02-17] MEDS: TETRACAINE 0.5% OPHTH SOLN 4ML OD SCH (11:04)
[2025-02-17] MEDS: LIDOCAINE 1% SDV 5ML VIAL As Ordered ONE (12:31)
[2025-02-17] MEDS ORDERED: fentaNYL 100 MCG/2 ML INJECTION As Ordered ONE (12:32)
[2025-02-17] MEDS: CEFUROXIME 1MG/0.1ML INTRACAMERAL INJ As Ordered ONE (12:34)
[2025-02-17 12:50] VITALS: BP 170/78; TEMP 97.8; O2SAT 96
[2025-02-21] MEDS ORDERED: OMEP-173 PO (08:44)
[2025-02-21] MEDS ORDERED: SERT50TA29 PO (08:44)
== END 2025-02-17 13:15 | disposition home or self-care (01) ==
LOC: M SDC 09:40
PROVIDERS: ATTEND Ophthalmology
DX: H25.11 Age-related nuclear cataract, right eye (principal); G47.30 Sleep apnea, unspecified; Z91.040 Latex allergy status; Z88.8 Allergy status to other drugs, medicaments and biological substances; Z91.018 Allergy to other foods; Z88.6 Allergy status to analgesic agent; Z91.013 Allergy to seafood; Z79.899 Other long term (current) drug therapy
CPT/HCPCS: 66984; J0697; J2250; J3010; V2632

== ENCOUNTER 2025-02-24 09:42 | Day surgery (SDC) | payer MEDICARE, MEDICAID ==
[~2025-02-24] VITALS: Ht 162.6 cm; Wt 73.6 kg
[~2025-02-24 09:42] MED LIST changes: +OMEP-173 PO; +SERT50TA29 PO; +fentaNYL 100 MCG/2 ML INJECTION As Ordered ONE
[2025-02-24] MEDS: CYCLOPENTOLATE 1% OPHTH SOLN 2ML BTL OS SCH (10:13)
[2025-02-24] MEDS: PHENYLEPHRINE 2.5% OPHTH SOL 2ML OS SCH (10:13)
[2025-02-24] MEDS: TETRACAINE 0.5% OPHTH SOLN 4ML OS SCH (10:13)
[2025-02-24] MEDS ORDERED: FLURBIPROFEN 0.03% OPHTH SOLN 2.5 ML OS SCH (11:20)
[2025-02-24] MEDS: LIDOCAINE 1% SDV 5ML VIAL As Ordered ONE (11:54)
[2025-02-24] MEDS: CEFUROXIME 1MG/0.1ML INTRACAMERAL INJ As Ordered ONE (11:54)
[2025-02-24 12:07] VITALS: BP 132/65; TEMP 97.7; O2SAT 96
== END 2025-02-24 12:21 | disposition home or self-care (01) ==
LOC: M SDC 09:42
PROVIDERS: ATTEND Ophthalmology
DX: H25.12 Age-related nuclear cataract, left eye (principal); G47.30 Sleep apnea, unspecified; Z91.040 Latex allergy status; Z88.8 Allergy status to other drugs, medicaments and biological substances; Z88.6 Allergy status to analgesic agent; Z91.013 Allergy to seafood; Z91.018 Allergy to other foods; Z79.899 Other long term (current) drug therapy; Z98.41 Cataract extraction status, right eye
CPT/HCPCS: 66984; J0697; J2250; J3010; V2632

== ENCOUNTER → 2025-03-10 | Outpatient (CLI) | payer MEDICARE, MEDICAID ==
[~2025-03-10] MED LIST changes: -LR 1,000 ML IV SCH; -MIDAZOLAM INJ 2MG/2ML VIAL As Ordered ONE; -fentaNYL 100 MCG/2 ML INJECTION As Ordered ONE
== END ==
LOC: M WHC 07:42
PROVIDERS: ATTEND Nurse Practitioner Family
DX: Z12.31 Encounter for screening mammogram for malignant neoplasm of breast (principal); R92.333 Mammographic heterogeneous density, bilateral breasts

== ENCOUNTER 2025-05-20 13:20 | Emergency (ER) | payer MEDICARE, MEDICAID ==
[~2025-05-20] VITALS: Ht 162.6 cm; Wt 72.2 kg
[~2025-05-20 13:20] MED LIST changes: +AMIT10TA11 PO; -AMIT10TA7 PO; +LIDO1ADH93 TOP; -LIDO5DIS41 TOP
[2025-05-20 13:24] VITALS: TEMP 97.2
[2025-05-20 18:00] VITALS: BP 135/69; O2SAT 96
== END 2025-05-20 18:02 | disposition home or self-care (01) ==
LOC: M ED 13:20
DX: S61.310A Laceration without foreign body of right index finger with damage to nail, initial encounter (principal); Y92.019 Unspecified place in single-family (private) house as the place of occurrence of the external cause; Y93.9 Activity, unspecified; Y99.9 Unspecified external cause status; W10.8XXA Fall (on) (from) other stairs and steps, initial encounter; I10 Essential (primary) hypertension; K21.9 Gastro-esophageal reflux disease without esophagitis; J45.909 Unspecified asthma, uncomplicated; Z88.6 Allergy status to analgesic agent; Z88.8 Allergy status to other drugs, medicaments and biological substances; Z91.013 Allergy to seafood; Z91.040 Latex allergy status; Z91.018 Allergy to other foods; Z79.1 Long term (current) use of non-steroidal anti-inflammatories (NSAID); Z79.899 Other long term (current) drug therapy

== ENCOUNTER → 2025-06-17 | Outpatient (REF) | payer MEDICARE, MEDICAID | LOC: M SFHCDERM 08:31 | PROVIDERS: ATTEND Nurse Practitioner Family | DX: C44.329 Squamous cell carcinoma of skin of other parts of face (principal) ==

== ENCOUNTER → 2025-07-14 | Outpatient (REF) | payer MEDICARE, MEDICAID ==
[2025-07-14 17:47] LABS: BASO # 0.0 10^3/uL (0.0-0.2); BASO % 0.5 % (0.0-1.0); EOS # 0.2 10^3/uL (0.0-0.5); EOS % 2.9 % (0.0-3.0); LYMPH # 1.6 10^3/uL (1.5-5.0); LYMPH % 26.7 % (24.0-44.0); MONO # 0.5 10^3/uL (0.0-0.8); MONO % 8.0 % (2.0-8.0); NEUTROPHILS # 3.6 10^3/uL (1.5-8.5); NEUTROPHILS % 61.7 % (36.0-66.0); PLATELET COUNT, AUTOMATED 230 10^3/uL (150-450)
[2025-07-14 17:57] LABS: IRON (FE) 88.0 UG/DL (50-170); PERCENT SATURATION 24.9 % (13.2-45.0)
[2025-07-14 18:00] LABS: FREE T4 0.96 NG/DL (0.89-1.76)
== END ==
LOC: M SFHCLERA 08:15
PROVIDERS: ATTEND Family Medicine
DX: Z00.00 Encounter for general adult medical examination without abnormal findings (principal); D50.9 Iron deficiency anemia, unspecified; E03.8 Other specified hypothyroidism

== ENCOUNTER → 2025-08-10 | Outpatient (REF) | payer MEDICARE, MEDICAID | LOC: M LAB REF 17:20 | DX: B34.9 Viral infection, unspecified (principal) ==